=== PATIENT | female | born 2000 | race Caucasian/White ===

== ENCOUNTER 2019-01-14 18:05 | Emergency (ER) | payer OTHER ==
--- NOTE | 2019-01-14 18:42 | EDPHY ---
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 Time Seen by Provider: 01/14/19 18:30 HPI/ROS: HPI: This is a 18-year-old female who presents with Chief Complaint: mech fall x2D CUSHION STUFFER, denies LOC/N/V, feels foggy, occiput/neck pain. Location: Head Quality: Injury Duration: 2 days ago Signs and Symptoms: no fever, + nausea, no vomiting, no photophobia, no noise sensitivity, no neck stiffness, no ear pain, no tinnitus, no nasal congestion, no sinus pressure, no weakness, no radiation, no aura + dizziness, + difficulty concentrating Timing: Gradual onset Severity: Moderate Context: Patient is generally healthy, student at [employer], presents accompanied by her mom with accidentally slipping on the ice outside of her sorority house around 8:00 p.m. Approximately 2 days ago. She reports that she fell directly backwards and hit the back portion of her scalp and neck on the ice. Denies loss of consciousness, dizziness, nausea, vomiting initially. She was ambulatory at the scene. She reports that she had to stand and hold a candle approximately 1 hr later for several minutes and at that time she began to begin feel lightheaded. Patient reports that yesterday she went to look at house and did not remember going inside. She reports difficulty concentrating and increased headaches with eye strain. Last eye exam was 1 month ago. Wears contacts and glasses. No history of concussions. Patient also complains of left-sided neck discomfort and posterior neck is discomfort that is worsened with looking left. Modifying Factors: None Comment: ROS: A comprehensive 10 system review of systems is otherwise negative aside from elements mentioned in the history of present illness. MEDICAL/SURGICAL/SOCIAL HISTORY: Medical history: Generally healthy. Does not take any regular medications. Last menstrual period 1 week ago. Surgical history: Denies Social history: Student at [employer]. Never smoked. Family history noncontributory. CONSTITUTIONAL: Well-developed, well-nourished teenage white female, wears glasses, awake and alert, no obvious distress HEENT: Atraumatic and normocephalic, PERRL, EOMI. Nares patent; no rhinorrhea; no nasal mucosal edema. Tympanic membranes clear. Oropharynx clear, no exudate and moist pink mucosa. Airway patent. No lymphadenopathy. NECK: supple, reproducible left trapezius muscle tenderness, mild midline tenderness, flexion 45 degrees, extension 45 degrees, right and left lateral flexion 45 degrees. Cardiovascular: Normal S1/S2, regular rate, regular rhythm, without murmur rub or gallop. PULMONARY/CHEST: Symmetrical and nontender. Clear to auscultation bilaterally. Good air movement. No accessory muscle usage. ABDOMEN: Soft, nondistended, nontender, no rebound, no guarding, no peritoneal signs, no masses or organomegaly. No CVAT. EXTREMITIES: 2/2 pulses, strength 5/5, no deformities, no clubbing, no cyanosis or edema. NEUROLOGICAL: no focal neuro deficits. GCS 15. Cranial nerves 2-12 grossly intact. Normal [id number] test. Normal [id number] test. Normal Romberg testing. Speech clear. SKIN: Warm and dry, no erythema. no rash. Good capillary refill. Source: Patient Exam Limitations: No limitations - Personal History Current Tetanus/Diphtheria Vaccine: Yes - Medical/Surgical History Hx Asthma: No Hx Chronic Respiratory Disease: No Hx Diabetes: No Hx Cardiac Disease: No Hx Renal Disease: No Hx Cirrhosis: No Hx Alcoholism: No Hx HIV/AIDS: No Hx Splenectomy or Spleen Trauma: No Other PMH: none - Social History Smoking Status: Never smoked Constitutional: Initial Vital Signs Temperature (C) 36.5 C 01/14/19 18:11 Heart Rate 85 01/14/19 18:11 Respiratory Rate 16 01/14/19 18:11 Blood Pressure 120/70 01/14/19 18:11 O2 Sat (%) 98 01/14/19 18:11 O2 Delivery Mode Room Air Allergies/Adverse Reactions: Penicillins Allergy (Verified 01/14/19 18:10) Home Medications: Medication Instructions Recorded Ondansetron Odt [Zofran Odt 4 mg 4 mg PO Q4 PRN #12 tab 01/14/19 (*)] Medical Decision Making - Diagnostics Imaging Results: Imaging Impressions Cervical Spine CT 01/14/19 18:42 Impression: 1. No significant intracranial abnormality seen. 2. Normal CT cervical spine. If symptoms worsen, additional imaging may be necessary. Findings discussed with Sherry Sanchez PAC at 19:16 hour, 01/14/2019. Head CT 01/14/19 18:42 Impression: 1. No significant intracranial abnormality seen. 2. Normal CT cervical spine. If symptoms worsen, additional imaging may be necessary. Findings discussed with Sherry Sanchez PAC at 19:16 hour, 01/14/2019. ED Course/Re-evaluation: Based on nexus protocol, head CT and cervical CT imaging ordered Patient's presenting signs of a mild concussion. Called by radiologist, Dr. Villalobos, who reports head CT scan shows no acute intracranial process. Cervical CT scan shows no acute spinal process. Discussed concussion precautions, concussion Clinic follow-up, school note Father's radiologist x-rays provided on disc per request No signs of neurovascular compromise/tenting of skin/compartment syndrome/ extremities and joints examined above and below area of concern and are neurovascularly intact. This patient was seen under the supervision of my secondary supervising physician. I evaluated care for this patient independently. Discussed this patient with Dr. Payton who did not see the patient. Differential Diagnosis: Head injury including but not limited to concussion, skull fracture, intraparenchymal contusion, subarachnoid, subdural and epidural hematoma. Departure - Departure Disposition: Home, Routine, Self-Care Clinical Impression: Closed head injury with concussion Qualifiers: Encounter type: initial encounter Loss of consciousness presence/duration: without LOC Qualified Code(s): S06.0X0A - Concussion without loss of consciousness, initial encounter Cervical strain, acute Qualifiers: Encounter type: initial encounter Qualified Code(s): S16.1XXA - Strain of muscle, fascia and tendon at neck level, initial encounter Condition: Good Instructions: Cervical Strain (ED), Concussion (ED), Head Injury (ED) Additional Instructions: You sustained a closed head injury and mild concussion and it is recommended that you observe concussion precautions. Please do not participate in any contact sports or moderate and strenuous activity until all symptoms have resolved or cleared by PCP/Concussion Clinic. Take Tylenol 650 mg every 4 hours and/or Ibuprofen 600 mg every 8 hours with food as needed for pain/headache. Take Zofran every 4-6 hours as needed for nausea, vomiting. Consume a minimum of 8-10 glasses of water or electrolyte fluid replacement drinks that include Gatorade, Powerade, Pedialyte. Please follow-up with primary care provider for [facility] in 5-7 days. If symptoms last longer than 1 week, please follow-up with Dr. Mueller in the concussion Clinic or Concussion Clinic at [employer] [facility]. Return to the ER immediately if you have progressive headaches, neurologic deficits, gait abnormality, visual disturbance, slurred speech, or any other symptom that concerns you. Referrals: Gila Mueller MD [Medical Doctor] - As per Instructions [facility] [Clinic] - As per Instructions Stand Alone Forms: School Excuse Prescriptions: Ondansetron Odt [Zofran Odt 4 mg (*)] 4 mg PO Q4 PRN #12 tab PRN Reason: Nausea/Vomiting, Use 1st
[2019-01-14 19:32] VITALS: BP 104/63
== END 2019-01-14 19:40 | disposition home or self-care (01) ==
DX: S06.0X0A Concussion without loss of consciousness, initial encounter (principal); W00.0XXA Fall on same level due to ice and snow, initial encounter; Y92.480 Sidewalk as the place of occurrence of the external cause